=== PATIENT | male | born 2005 | race Caucasian/White ===

== ENCOUNTER 2023-09-17 18:14 | Emergency (ER) | payer BC ==
[2023-09-17 18:39] LABS: BASOPHILS PERCENT AUTO 0.4 % (0.0-1.0); EOSINOPHILS ABSOLUTE AUTO 0.3 K/mm3 (0.0-0.7); EOSINOPHILS PERCENT AUTO 2.8 % (0.0-5.0); HEMOGLOBIN 15.7 gm/dl (14.0-18.0); IMMATURE GRAN ABSOLUTE AUTO 0.03 K/mm3 (0.00-0.05); IMMATURE GRAN PERCENT AUTO 0.3 % (0.0-0.4); LYMPHOCYTES PERCENT AUTO 19.1 % (50.0-65.0); MEAN CORPUSCULAR HEMOGLOBIN 31.7 pg (28.0-32.0); MEAN CORPUSCULAR HGB CONC 35.7 g/dl (32.0-36.0); MEAN CORPUSCULAR VOLUME 88.7 fl (83.0-99.0); MEAN PLATELET VOLUME 10.4 fl (9.4-12.4); MONOCYTES ABSOLUTE AUTO 0.5 K/mm3 (0.1-1.4); MONOCYTES PERCENT AUTO 5.1 % (2.0-10.0); NEUTROPHILS ABSOLUTE AUTO 7.7 K/mm3 (1.5-8.5); NEUTROPHILS PERCENT AUTO 72.3 % (35.0-45.0); PLATELET COUNT,PLT 194 K/mm3 (150-400); RED BLOOD CELL COUNT 4.96 M/mm3 (4.52-5.90); WHITE BLOOD CELL COUNT,WBC 10.67 K/mm3 (4.5-13.5)
[2023-09-17] MEDS ORDERED: Ondansetron 4 MG Tab.DIS PO ONE (18:56)
[2023-09-17] MEDS ORDERED: Ketorolac 60 MG/2 ML SDV IM ONE (18:56)
[2023-09-17 19:16] LABS: A/G RATIO 1.4 (1-2); ALBUMIN 4.4 g/dl (3.4-5.0); ANION GAP 14.1 (5-15); BILIRUBIN TOTAL 1.1 mg/dL (0.2-1.0); BUN/CREATININE RATIO 13.6 (14-18); CREATININE 1.1 mg/dL (0.7-1.3); EST CRCL DRUG DOSING (CG) 108.01 mL/min; POTASSIUM,K 3.1 mEq/L (3.5-5.1); PROTEIN TOTAL,TP 7.5 g/dl (6.4-8.2); TSH 0.992 uIU/mL (0.516-4.13)
[2023-09-17] MEDS ORDERED: Potassium Chloride 20 MEQ Tab.ER PO ONE (19:47)
[2023-09-17] MEDS ORDERED: Magnesium Oxide 400 MG Tab PO ONE (20:20)
== END 2023-09-17 20:56 | disposition home or self-care (01) ==
LOC: JD.ED 18:14
DX: S13.4XXA Sprain of ligaments of cervical spine, initial encounter (principal); R51.9 Headache, unspecified; E87.6 Hypokalemia; E83.42 Hypomagnesemia; J45.909 Unspecified asthma, uncomplicated; W21.05XA Struck by basketball, initial encounter; Z88.1 Allergy status to other antibiotic agents; Z91.018 Allergy to other foods; Z91.048 Other nonmedicinal substance allergy status
CPT/HCPCS: 36415; 72125; 80053; 83735; 84443; 85025; 99284; A9270